=== PATIENT | female | born 2000 | race Caucasian/White ===

== ENCOUNTER 2020-11-27 11:21 | Emergency (ER) | payer OTHER ==
[~2020-11-27] VITALS: Ht 167.6 cm; Wt 58.1 kg
[2020-11-27] MEDS ORDERED: CEPHALEXIN500 MG PO (11:46)
[2020-11-27 13:24] VITALS: BP 134/94
== END 2020-11-27 13:24 | disposition home or self-care (01) ==
LOC: ER 11:21
DX: S91.011A Laceration without foreign body, right ankle, initial encounter (principal); W26.8XXA Contact with other sharp object(s), not elsewhere classified, initial encounter; Y93.89 Activity, other specified; Y92.89 Other specified places as the place of occurrence of the external cause; Y99.8 Other external cause status